=== PATIENT | female | born 1985 | race Two or more races ===

== ENCOUNTER 2019-04-27 07:06 | Emergency (ER) | payer MEDICAID ==
[~2019-04-27] VITALS: Ht 172.7 cm; Wt 66.2 kg
[2019-04-27 07:11] VITALS: Ht 172.7 cm; Wt 66.2 kg
[2019-04-27 12:03] VITALS: BP 118/73
== END 2019-04-27 11:29 | disposition home or self-care (01) ==
LOC: ED 07:06
DX: S30.0XXA Contusion of lower back and pelvis, initial encounter (principal); F17.210 Nicotine dependence, cigarettes, uncomplicated; Z71.6 Tobacco abuse counseling; Z90.89 Acquired absence of other organs; W01.0XXA Fall on same level from slipping, tripping and stumbling without subsequent striking against object, initial encounter; Y93.89 Activity, other specified; Y92.89 Other specified places as the place of occurrence of the external cause; Y99.8 Other external cause status
CPT/HCPCS: 99406; J1100; J1885